=== PATIENT | female | born 1945 | race Hispanic/Latino ===

== ENCOUNTER → 2017-07-11 | Outpatient (CLI) | payer MEDICARE ==
[~2017-07-11] MED LIST: ATOR20TA65 PO; GLIP1TAB6 PO; LOSA1TAB37 PO; RISE35TA12 PO
== END | disposition home or self-care (01) ==
LOC: RAH 10:29
PROVIDERS: ATTEND Family Medicine
DX: Z12.31 Encounter for screening mammogram for malignant neoplasm of breast (principal); I10 Essential (primary) hypertension; E11.9 Type 2 diabetes mellitus without complications; E78.5 Hyperlipidemia, unspecified; M81.0 Age-related osteoporosis without current pathological fracture
CPT/HCPCS: 77067

== ENCOUNTER → 2018-07-12 | Outpatient (CLI) | payer MEDICARE | END | disposition home or self-care (01) | LOC: RAH 12:57 | PROVIDERS: ATTEND Internal Medicine | DX: Z12.31 Encounter for screening mammogram for malignant neoplasm of breast (principal) | CPT/HCPCS: 77067 ==

== ENCOUNTER → 2020-07-22 | Outpatient (CLI) | payer MEDICARE | END | disposition home or self-care (01) | LOC: RAH 15:08 | PROVIDERS: ATTEND Family Medicine | DX: Z12.31 Encounter for screening mammogram for malignant neoplasm of breast (principal) | CPT/HCPCS: 77067 ==

== ENCOUNTER 2022-02-27 09:42 | Emergency (ER) | payer MEDICARE, OTHER ==
[~2022-02-27] VITALS: Ht 152.4 cm; Wt 59.9 kg
[2022-02-27 09:46] VITALS: BP 117/90
[2022-02-27] MEDS ORDERED: ONDANSETRON 4MG INJ IVP STA (10:53)
[2022-02-27] MEDS ORDERED: MORPHINE 4 MG SYG IM ONE (11:00)
[2022-02-27] MEDS ORDERED: ONDANSETRON ODT 4MG TAB SL ONE (11:00)
[2022-02-27] MEDS ORDERED: IBUP-2070 PO (11:02)
== END 2022-02-27 11:25 | disposition home or self-care (01) ==
LOC: EDH 09:42
DX: S42.202A Unspecified fracture of upper end of left humerus, initial encounter for closed fracture (principal); E11.9 Type 2 diabetes mellitus without complications; E78.00 Pure hypercholesterolemia, unspecified; I10 Essential (primary) hypertension; Z79.84 Long term (current) use of oral hypoglycemic drugs; Z79.899 Other long term (current) drug therapy; W01.0XXA Fall on same level from slipping, tripping and stumbling without subsequent striking against object, initial encounter; Y93.01 Activity, walking, marching and hiking; Y92.89 Other specified places as the place of occurrence of the external cause; Y99.8 Other external cause status
CPT/HCPCS: 99283; 29105; 73030; 96372; J2270

== ENCOUNTER → 2024-08-28 | Outpatient (CLI) | payer MEDICARE, OTHER ==
[~2024-08-28] MED LIST changes: +DEXT1DRO OP; +LATA2.5D14 OU; -RISE35TA12 PO
--- NOTE | 2024-08-28 16:59 | HMCIMG ---
US ARTERIAL BILAT LOW EXT DUPL HISTORY: Peripheral vascular disease COMPARISON: None TECHNIQUE: Bilateral lower extremity arterial Doppler ultrasound study was performed. FINDINGS: Biphasic arterial waveforms are noted in the common femoral, deep femoral, superficial femoral, popliteal, posterior tibial and dorsalis pedal arteries. On the right, the peak systolic velocity of the common femoral artery is 136 cm/s, the proximal femoral artery is 107 cm/s, the mid femoral artery is 97 cm/s, the distal femoral artery is 82 cm/s, the proximal popliteal artery is 76 cm/s, the distal popliteal artery is 92 cm/s, the anterior tibial artery is 71 cm/s, the posterior tibial artery artery is 52 cm/s,and the dorsalis pedal artery is 54 cm/s. On the left, the peak systolic velocity of the common femoral artery is 111 cm/s, the proximal femoral artery is 94 cm/s, the mid femoral artery is 83 cm/s, the distal femoral artery is 72 cm/s, the proximal popliteal artery is 50 cm/s, the distal popliteal artery is 50 cm/s, the anterior tibial artery is 64 cm/s, the posterior tibial artery artery is 50 cm/s,and the dorsalis pedal artery is 55 cm/s. IMPRESSION: 1. Atherosclerotic disease. 2. Biphasic arterial waveforms noted of the lower extremity artery system.
== END | disposition home or self-care (01) ==
LOC: RAH 09:26
PROVIDERS: ATTEND Family Medicine
DX: I70.203 Unspecified atherosclerosis of native arteries of extremities, bilateral legs (principal)
CPT/HCPCS: 93925